=== PATIENT | female | born 1960 | race Caucasian/White ===

== ENCOUNTER 2021-06-02 11:49 | Outpatient (CLI) | payer BC, SELFPAY ==
--- NOTE | 2021-06-02 12:00 | XR_ITS ---
WS: [email or web address] KUB, AP view, 06/02/2021 Clinical Data: HEMATURIA Comparison: CT abdomen and pelvis, 08/02/2012. Findings: No abnormal intraabdominal masses are seen. There is no dilatated small bowel or evidence of obstruct ion. There is a 1.0 cm calcification overlying the inferior pole of the left kidney. There is a 0.9 cm derrell cification at the left superior aspect of the urinary bladder which could be a UVJ calcification. Fec al material obscures detail over both the left and right kidney. The bladder is full. There are clips in the right upper quadrant from a cholecystectomy. There is a dextroscoliosis. XR/XR KUB [id number] Impression: 1. Probable left renal calcification. 2. Possible left UVJ calcification.
== END 2021-06-02 11:50 | disposition home or self-care (01) ==
LOC: RAD 11:54
PROVIDERS: PCP Family Medicine; Visit Provider Nurse Practitioner Family
DX: R31.9 Hematuria, unspecified (principal)
CPT/HCPCS: 74018; 81003; 87086

== ENCOUNTER → 2021-07-13 08:05 | Outpatient (BNVA) | payer BC, SELFPAY | PROVIDERS: PCP Family Medicine; Visit Provider Nurse Practitioner Family | DX: N30.90 Cystitis, unspecified without hematuria (principal) | CPT/HCPCS: 81003 ==

== ENCOUNTER 2021-12-27 12:20 | Outpatient (CLI) | payer BC, SELFPAY ==
--- NOTE | 2021-12-27 12:00 | XR_ITS ---
WS: [email or web address] KUB, AP view, 12/27/2021 Clinical Data: Renal Stone Comparison: KUB, 06/02/2021. Findings: There is a 1.0 cm calcification overlying the inferior pole of the left kidney unchanged. There is al so an irregular 0.9 cm calcification at the region of the left ureteral vesicle junction. The right k idney shows no calcifications. There is a dextroscoliosis. There are clips in the right upper quadran t from a cholecystectomy. XR/XR KUB [id number] Impression: No change in possible left renal calcification or left UVJ calcification.
== END 2021-12-27 12:21 | disposition home or self-care (01) ==
PROVIDERS: PCP Family Medicine; Visit Provider Urology
DX: N20.0 Calculus of kidney (principal)
CPT/HCPCS: 74018

== ENCOUNTER 2022-05-10 16:29 | Outpatient (CLI) | payer OTHER, SELFPAY ==
--- NOTE | 2022-05-10 16:57 | XR_ITS ---
WS: [email or web address] Right knee, 3 views, 05/10/2022 Clinical Data: PAIN IN RIGHT KNEE Comparison: None. Findings: No fractures or dislocations are seen. There is minimal narrowing of the medial joint compartment. Th ere are small spurs of the lateral tibial plateau and lateral femoral condyle. The patella shows mild posterior spurring and an anterior superior spur. The soft tissues are unremarkable. XR/XR knee RT 3V* [id number] Impression: Mild osteoarthritis of the right knee Kellgren-Sawyer Classification: grade 1 (doubtful): doubtful joint space narr owing and possible osteophytic lipping
== END 2022-05-10 16:30 | disposition home or self-care (01) ==
PROVIDERS: PCP Family Medicine; Visit Provider Family Medicine
DX: M17.11 Unilateral primary osteoarthritis, right knee (principal)
CPT/HCPCS: 73562

== ENCOUNTER → 2022-06-05 16:15 | Outpatient (BNVA) | payer OTHER, SELFPAY | PROVIDERS: PCP Family Medicine; Visit Provider Urology | DX: N30.20 Other chronic cystitis without hematuria (principal); N20.0 Calculus of kidney | CPT/HCPCS: 81003 ==

== ENCOUNTER 2022-07-03 13:26 | Outpatient (CLI) | payer OTHER, SELFPAY ==
--- NOTE | 2022-07-03 13:33 | MM_ITS ---
WS: [email or web address] BILATERAL 3D TOMOSYNTHESIS DIGITAL SCREENING MAMMOGRAPHY WITH CAD CLINICAL INFORMATION: SCREENING HISTORY: Screening mammogram. RIGHT breast pain and soreness. COMPARISON: December 05, 2018 TECHNIQUE: Bilateral CC and MLO views. FINDINGS: Scattered fibroglandular densities bilaterally. No suspicious focal mass, asymmetry, calcifications, or architectural distortion. No evidence of malignancy. A few incidental punctate calcifications. MM/[place] [id number] IMPRESSION: BI-RADS: 2-Benign FOLLOW UP: 1 Year Follow-up Recommend return to annual screening mammography..
== END 2022-07-03 13:27 | disposition home or self-care (01) ==
LOC: RAD 13:27
PROVIDERS: PCP Family Medicine; Visit Provider Family Medicine
DX: Z12.31 Encounter for screening mammogram for malignant neoplasm of breast (principal)
CPT/HCPCS: 77063; 77067

== ENCOUNTER 2023-08-09 07:47 | Outpatient (CLI) | payer OTHER, SELFPAY ==
--- NOTE | 2023-08-09 | US_ITS ---
WS: [email or web address] RIGHT UPPER QUADRANT ULTRASOUND HISTORY: ELEVATED LFT'S COMPARISON: None available. Liver: 13.4 cm in length.. Mild coarse echotexture throughout the liver. No solid mass. There is a sm all septated cyst in the central liver with a maximum diameter of 2.0 cm. No bile duct dilatation. Portal Vein: Normal hepatopetal flow with monophasic waveform. Gallbladder: Prior cholecystectomy. CBD: 0.6 cm Pancreas: Normal size and echogenicity. Right kidney: 11.3 cm in length. Normal size and echogenicity. No hydronephrosis or mass. Aorta and IVC: Unremarkable abdominal aorta and IVC. No ascites. IMPRESSION: 1. Prior cholecystectomy. 2. Septated cyst in the central liver with a maximum diameter of 2.0 cm. 3. No bile duct dilatation.
== END 2023-08-09 07:48 | disposition home or self-care (01) ==
LOC: RAD 07:48
PROVIDERS: PCP Family Medicine; Visit Provider Family Medicine
DX: R79.89 Other specified abnormal findings of blood chemistry (principal); Z90.49 Acquired absence of other specified parts of digestive tract; K76.89 Other specified diseases of liver
CPT/HCPCS: 76705

== ENCOUNTER 2023-09-24 13:29 | Outpatient (CLI) | payer OTHER, SELFPAY ==
--- NOTE | 2023-09-24 13:36 | MM_ITS ---
WS: [email or web address] VIEWS: MLO and CC views both breasts. 3D digital tomosynthesis is also included in this exam. Comparison made with prior exam of 03/02/2010, 04/30/2012, 09/22/2014, 11/16/2015, 08/21/2017, 12/05/2018, .. Findings: There was no sign of mass, architectural distortion or suspicious calcification in either breast. The re are scattered areas of fibroglandular density Impression: MM/[place] [id number] BI-RADS: 2-Benign finding. FOLLOW-UP: 1 Year Follow-up This mammogram was also analyzed by the Computer Aided Detection System [employer].
== END 2023-09-24 13:30 | disposition home or self-care (01) ==
LOC: RAD 13:29
PROVIDERS: PCP Family Medicine; Visit Provider Family Medicine
DX: Z12.31 Encounter for screening mammogram for malignant neoplasm of breast (principal); R92.323 Mammographic fibroglandular density, bilateral breasts
CPT/HCPCS: 77063; 77067

== ENCOUNTER 2024-05-21 08:27 | Outpatient (CLI) | payer OTHER, SELFPAY ==
--- NOTE | 2024-05-21 08:45 | US_ITS ---
WS: [email or web address] ULTRASOUND SOFT TISSUES LEFT hip HISTORY: LEFT HIP LUMP COMPARISON: None available. TECHNIQUE: 2-D and color Doppler imaging is submitted. Ultrasound is directed along the LEFT lateral hip at the areas of palpable abnormality. There is a ve ry vague hyperechoic area corresponding to the palpable abnormality. This area which is ill-defined m easures 2.0 x 1.3 x 0.9 cm. No increased vascularity. US/US soft tissue/extremity [id number] IMPRESSION: Ill-defined predominantly hyperechoic nodule in the soft tissues adjacent to th e LEFT lateral hip. Lipoma versus area of fat necrosis.
== END 2024-05-21 08:28 | disposition home or self-care (01) ==
LOC: RAD 08:28
PROVIDERS: PCP Family Medicine; Visit Provider Family Medicine
DX: D21.22 Benign neoplasm of connective and other soft tissue of left lower limb, including hip (principal)
CPT/HCPCS: 76882

== ENCOUNTER 2024-11-10 09:40 | Outpatient (CLI) | payer OTHER, SELFPAY ==
--- NOTE | 2024-11-10 09:45 | MM_ITS ---
WS: [email or web address] BILATERAL SCREENING DIGITAL TOMOSYNTHESIS MAMMOGRAM WITH CAD HISTORY: SCREENING COMPARISON: 09/24/2023, 07/03/2022 Bilateral CC and MLO views with tomosynthesis and synthetic mammography submitted. Computer aided detection analyzed. Breast composition: The breasts are heterogeneously dense, which may obscure small masses. No suspicious masses, microcalcifications or architectural distortion. Benign calcifications RIGHT breast. MM/MM scr BI tomosynthesis [id number] IMPRESSION: BI-RADS: 2 - Benign FOLLOW UP: 1 Year Follow-up
== END 2024-11-10 09:41 | disposition home or self-care (01) ==
PROVIDERS: PCP Family Medicine; Visit Provider Family Medicine
DX: Z12.31 Encounter for screening mammogram for malignant neoplasm of breast (principal); R92.333 Mammographic heterogeneous density, bilateral breasts; R92.1 Mammographic calcification found on diagnostic imaging of breast
CPT/HCPCS: 77063; 77067